=== PATIENT | male | born 1980 | race African-American/Black ===

== ENCOUNTER 2018-08-27 17:48 | Inpatient (IN) | payer SELFPAY ==
[2018-08-27 18:24] LABS: #Basophils 0.1 thou/uL (0.0-0.2); #Eosinphils 0.1 thou/uL (0.0-0.7); #Lymphocytes 1.4 thou/uL (1.20-3.40); #Monocytes 0.4 thou/uL (0.11-0.59); #Neutrophils 3.2 thou/uL (1.40-6.50); %Basophils 1.1 % (0.0-1.0); %Eosinophils 2.4 % (0.0-10.0); %Lymphocytes 26.9 % (21.0-51.0); %Neutrophils 62.5 % (42.0-75.0); Hemoglobin 12.4 g/dL (14.0-18.0); Mean Corpuscular HGB CONC 32.3 g/dL (32.0-36.0); Mean Corpuscular Hemoglobin 28.5 pg (27.0-31.0); Mean Corpuscular Volume 88.3 fL (78.0-98.0); Mean Platelet Volume 6.6 fL (7.4-10.4); Platelet Count 274 thou/uL (130-400); Red Blood Cell (RBC) Count 4.37 mill/uL (4.70-6.10); White Blood Cell (WBC) Count 5.1 thou/uL (4.8-10.8)
[2018-08-27 18:46] LABS: ALT (SGPT) 35 U/L (8-55); AST (SGOT) 53 U/L (5-34); Albumin 4.4 g/dL (3.5-5.0); Alkaline Phosphatase 59 U/L (40-150); Anion Gap 19 mmol/L (10-20); BUN (Urea Nitrogen) 20 mg/dL (8.9-20.6); Bilirubin, Total 0.9 mg/dL (0.2-1.2); Calc. Creatinine Clearance 0 mL/min (70-130); Carbon Dioxide 25 mmol/L (22-29); Chloride 102 mmol/L (98-107); Estimated GFR-MDRD 64; Globulin 3.5 g/dL (2.4-3.5); Glucose 81 mg/dL (70-105); Potassium 3.7 mmol/L (3.5-5.1); Protein, Total 7.9 g/dL (6.0-8.3); Sodium 142 mmol/L (136-145)
[2018-08-27 19:02] LABS: Calcium 5.6 mg/dL (7.8-10.44)
[2018-08-27] MEDS ORDERED: Calcium Gluc 4.6 MEQ/10 ML (100 MG/ML) ONE (20:37)
[2018-08-27] MEDS ORDERED: Ondansetron PF 4 MG/2 ML Vial IVP PRN (21:27)
[2018-08-27] MEDS ORDERED: Ondansetron ODT 4 MG TAB PO PRN (21:27)
[2018-08-27] MEDS ORDERED: Acetaminophen 325 MG TAB PO PRN (21:27)
[2018-08-27] MEDS ORDERED: Calcium Gluc 4.6 MEQ/10 ML (100 MG/ML) SLOW IVP SCH (21:34)
[2018-08-28 00:59] LABS: Anion Gap 20 mmol/L (10-20); BUN (Urea Nitrogen) 19 mg/dL (8.9-20.6); Calc. Creatinine Clearance 69 mL/min (70-130); Carbon Dioxide 22 mmol/L (22-29); Chloride 102 mmol/L (98-107); Estimated GFR-MDRD 72; Glucose 78 mg/dL (70-105); Potassium 3.5 mmol/L (3.5-5.1); Sodium 140 mmol/L (136-145)
[2018-08-28 01:02] LABS: Calcium 5.4 mg/dL (7.8-10.44)
[2018-08-28] MEDS ORDERED: Calcium Gluconate 4.6 MEQ in Sodium Chloride 0.9% 100 ML IVPB SCH (01:20)
[2018-08-28 01:52] LABS: Phosphorus 6.1 mg/dL (2.3-4.7)
--- NOTE | 2018-08-28 02:30 | HP ---
PRIMARY CARE PHYSICIAN: The patient has no PCP. CODE STATUS: Full code. TIME OF EVALUATION: 08:40 p.m. CHIEF COMPLAINT: Muscle spasm. HISTORY OF PRESENT ILLNESS: This is a 38-year-old male patient with past medical history of calcium problems, came to the hospital after having recurrent [id number]-ed-[id number] muscle spasm, triggered due to low calcium, no alleviating factors. The patient has Chvostek and Trousseau signs. The patient had received some calcium IV, however, the deficits persist likely due to chronic deficit and underlying disease. The patient does not recall what his diagnosis is. He is a poor historian. REVIEW OF SYSTEMS: CONSTITUTIONAL: No fever or chills. The patient has generalized weakness. RESPIRATORY: No cough, sputum production, or shortness of breath. CARDIOVASCULAR: No chest pain or palpitation. GASTROINTESTINAL: No nausea, no vomiting, diarrhea, or abdominal pain. CENTRAL NERVOUS SYSTEM: No dizziness, headache, or feeling lightheaded. GENITOURINARY: No burning on urination. MUSCULOSKELETAL: The patient has contractures of bilateral hands when the blood pressure cuff is applied to his arms. All other systems were reviewed and negative except for the findings mentioned above. PAST MEDICAL HISTORY: History of hypocalcemia. PAST SURGICAL HISTORY: No surgical history. PSYCH HISTORY: No previous psych history. FAMILY HISTORY: Reviewed and non contributory to current presentation. SOCIAL HISTORY: The patient drinks everyday less than 5 drinks per day. No drugs. The patient uses tobacco, smokes daily one pack per day. ALLERGIES: NO KNOWN DRUG ALLERGIES. REPORTED MEDICATIONS: None. PHYSICAL EXAMINATION: VITAL SIGNS: On presentation, blood pressure 161/89 with heart rate 73, respiratory rate was 20, temperature 99.3. Pain is 0/10. Oxygen saturation was 98% on room air. GENERAL APPEARANCE: The patient is alert, oriented, not in acute distress. The patient is a poor historian. HEENT: Eyes, normal conjunctivae. Moist oral mucosa. Anicteric. NECK: No JVD. RESPIRATORY: Bilateral air entry. No rales, no wheezing. Symmetric expansion. CARDIOVASCULAR: Normal rate, regular rhythm. No murmurs. No gallop. No edema. ABDOMEN: Soft. Normal bowel sounds. MUSCULOSKELETAL: The patient has a positive Trousseau on my examination. Generalized increased muscle tone. SKIN: Warm, intact. No pallor. No rash. No redness. Peripheral pulses are present. Capillary refill seems to be intact. NEUROLOGIC: No evidence of any new focal weakness. Baseline speech. Cranial nerves seems to be intact. PSYCHIATRIC: The patient is in good mood. No anxiety. Optimal judgment. EKG was reviewed. The patient has normal sinus rhythm with prolonged QT, ventricular rate 72, SC 132, QRS 78, and QT corrected 500. LABORATORY DATA: Reviewed. The patient has white count 5.1, hemoglobin 12.4, MCV 88.3, platelet count 274. Chemistry; sodium 142, potassium 3.7, chloride 102, carbon dioxide 25, anion gap 19, BUN 20, creatinine 1.51, unclear baseline kidney function for this patient. GFR 64, glucose 81, calcium 5.6 and second one was 5.4, total bilirubin 0.9. LFTs were negative. Serum total protein 7.9, albumin 4.4. ASSESSMENT AND PLAN: The patient will be placed in ICU for the following medical problems. Critical care time more than 35 minutes is spent in patient stabilization, bedside assessment, and counseling. 1. Severe hypocalcemia. The patient has been given 2 g of calcium IV and calcium remains very low. The patient is symptomatic with Trousseau symptoms and generalized spastic symptoms. We will place on a calcium drip in ICU, we will monitor for arrhythmias. We will order PTH, vitamin D, and phosphorous and magnesium. We will replace electrolytes as needed. 2. Uncontrolled hypertension. The patient presented with systolic blood pressure of 161. Seeing that the patient was not taking any medication at home, we might start some blood pressure medications if it has been getting to control. 3. Deep venous thrombosis prophylaxis. 4. Possible acute kidney injury. The patient has a creatinine of 1.5, the repeat one is 1.36. We will hydrate, we will monitor kidney function, might need Nephrology evaluation for assistance with patient. Job ID: [id number] [facility]
[2018-08-28 05:28] VITALS: BMI 23.6
[2018-08-28 05:43] LABS: #Basophils 0.1 thou/uL (0.0-0.2); #Eosinphils 0.3 thou/uL (0.0-0.7); #Lymphocytes 1.2 thou/uL (1.20-3.40); #Monocytes 0.5 thou/uL (0.11-0.59); %Basophils 1.1 % (0.0-1.0); %Lymphocytes 23.6 % (21.0-51.0); %Monocytes 10.3 % (0.0-10.0); Hemoglobin 11.9 g/dL (14.0-18.0); Mean Corpuscular HGB CONC 32.8 g/dL (32.0-36.0); Mean Corpuscular Hemoglobin 29.1 pg (27.0-31.0); Mean Corpuscular Volume 88.8 fL (78.0-98.0); Mean Platelet Volume 7.4 fL (7.4-10.4); Platelet Count 261 thou/uL (130-400); RBC Distribution Width 14.1 % (11.5-14.5); Red Blood Cell (RBC) Count 4.09 mill/uL (4.70-6.10)
[2018-08-28 05:59] LABS: Anion Gap 18 mmol/L (10-20); BUN (Urea Nitrogen) 18 mg/dL (8.9-20.6); Calc. Creatinine Clearance 70 mL/min (70-130); Carbon Dioxide 25 mmol/L (22-29); Chloride 99 mmol/L (98-107); Estimated GFR-MDRD 74; Glucose 71 mg/dL (70-105); Potassium 3.5 mmol/L (3.5-5.1); Sodium 138 mmol/L (136-145)
[2018-08-28 06:01] LABS: Calcium 5.9 mg/dL (7.8-10.44)
[2018-08-28] MEDS ORDERED: SODIUM CHLORIDE 0.9% IVPB SCH ×2 (06:30→06:45)
[2018-08-28] MEDS ORDERED: CALCIUM GLUCONATE IVPB SCH ×2 (06:30→06:45)
[2018-08-28] MEDS ORDERED: Calcium Carbonate 500 MG TAB PO SCH (08:00)
[2018-08-28] MEDS: Enoxaparin Sodium 40 MG/0.4 ML SYRINGE SC SCH (08:27)
[2018-08-28] MEDS: Magnesium Oxide 250 MG TAB PO SCH ×2 (09:38→20:41)
[2018-08-28] MEDS: Calcitriol 0.25 MCG CAP PO SCH (09:38)
--- NOTE | 2018-08-28 12:06 | CON ---
DATE OF CONSULTATION: REASON FOR CONSULTATION: Hypocalcemia. HISTORY OF PRESENT ILLNESS: This is a 38-year-old gentleman, who presented to the hospital with cramps and was noted to have a low-calcium. The patient has had chronic hypocalcemia for years. No diagnosis has been made. PAST MEDICAL HISTORY: Significant for CKD and hypertension. PAST SURGICAL HISTORY: None. SOCIAL HISTORY: No alcohol use. FAMILY HISTORY: Negative for ESRD. ALLERGIES: REVIEWED. HOME MEDICATIONS: List reviewed. REVIEW OF SYSTEMS: A 12-point review of systems was performed and was negative except for positives noted above. NECK: No swelling or lumps. NOSE: No epistaxis or discharge. EYES: No diplopia or pain. MUSCULOSKELETAL: No joint pain. NEUROPSYCHIATRIC SYSTEMS: No suicidal ideation. No ideation. SKIN: Denies any rash or ulcer. CONSTITUTIONAL: No fever or chills. PHYSICAL EXAMINATION: CONSTITUTIONAL: On examination, the patient is awake and alert. VITAL SIGNS: Afebrile. Pulse 75, breathing 16, and blood pressure 137/86. GENERAL APPEARANCE AND MENTAL STATUS: Fair. HEAD/NECK: Normocephalic. Atraumatic. EYES: EOMI. No deformity. EARS: Clear. No ulcers. NOSE: Intact. No lesions. MOUTH: Clear. No discharge. THROAT: Clear. No exudate. LUNGS: Clear. No crackles. CARDIAC: S1, S2. No rub. ABDOMEN: Benign. Bowel sounds positive. GENITALIA/RECTUM: Tavarez absent. BACK/EXTREMITIES: Edema 0+. NEUROLOGICAL: Alert and motor intact. LABORATORY DATA: Labs show creatinine 1.3. ASSESSMENT AND PLAN: 1. Hypocalcemia most likely because of hyperparathyroidism. 2. Chronic kidney disease, stage 3, stable. Acute kidney injury, stable. I would recommend starting the patient on calcitriol, on 2000 mg of elemental calcium 3 times a day. Job ID: [id number]
[2018-08-28] MEDS: Calcium Carbonate 500 MG TAB PO SCH ×2 (12:20→16:03)
--- NOTE | 2018-08-28 13:20 | CON ---
DATE OF CONSULTATION: 08/28/2018 REASON FOR CONSULT: ICU patient. HISTORY OF PRESENT ILLNESS: The patient is a 38-year-old male with past medical history significant for low calcium levels previously. He is on multiple medications in the outpatient setting in order to improve his calcium. Either way, he presented to the emergency department with horrendous cramping. He had positive Chvostek sign and Trousseau sign. As such, he was tucked in the ICU on a calcium drip. Overnight, all cramping has resolved. Essentially, he has returned to his usual state of health and has no specific complaints. He denies any spasm, fevers, chills, nausea, or vomiting. Otherwise, he is doing very well. PAST MEDICAL HISTORY: Hypocalcemia. PAST SURGICAL HISTORY: None. SOCIAL HISTORY: He drinks on a daily basis. Denies illicit drug use. He smokes a pack on a daily basis and has a 10-pack year history of smoking. He has no exposure to chemicals, dust, asbestos, or tuberculosis. FAMILY HISTORY: Noncontributory. ALLERGIES: NO KNOWN DRUG ALLERGIES. MEDICATIONS: List of his inpatient medications was reviewed. No specific updates were made at this time. REVIEW OF SYSTEMS: General, head, ears, eyes, nose, throat, cardiovascular, respiratory, GI, , musculoskeletal, neurologic, and skin are negative except as mentioned in the HPI. PHYSICAL EXAMINATION: VITAL SIGNS: Afebrile, pulse 100, blood pressure 137/86, respirations 21, and saturation 100% on room air. GENERAL: The patient is awake and alert, in no apparent distress. LUNGS: Excellent air entry with no prolonged expiratory phase or wheezing present. HEART: Normal rate and regular. ABDOMEN: Soft, nontender, and nondistended. Bowel sounds are positive. MUSCULOSKELETAL: No cyanosis or clubbing. No pitting in the bilateral lower extremities. NEUROLOGIC: Grossly nonfocal. LABORATORY DATA: WBC 5.0, hemoglobin 11.9, and platelets 261,000. Creatinine 1.33, and gently downtrending. Calcium 5.9, is moving in the right direction. Parathyroid hormone is less than 4. Vitamin D is 21.9. Phosphorus 6.1, magnesium 1.9. ASSESSMENT: 1. Hypocalcemia, symptomatic. 2. Hypoparathyroidism. 3. Hypertension. 4. Chronic kidney disease, suspected. DISCUSSION AND PLAN: The patient is doing fine from respiratory standpoint. At this point, he is stable for transition to the telemetry unit. We will need to continue to watch his electrical activity of the heart. Pulmonary Critical Care will continue to follow along for the time being. 70 minutes have been devoted to this patient in various activities. I personally reviewed all imaging studies and laboratory data noted within this document. For fifty percent of this time, I was interacting with the patient at the bedside or coordinating care with the care team. For the remainder of the time I was immediately available to the patient in the hospital unit. Job ID: [id number] [facility]
[2018-08-28 17:01] LABS: Anion Gap 13 mmol/L (10-20); BUN (Urea Nitrogen) 16 mg/dL (8.9-20.6); Calc. Creatinine Clearance 77 mL/min (70-130); Calcium 7.4 mg/dL (7.8-10.44); Carbon Dioxide 28 mmol/L (22-29); Chloride 99 mmol/L (98-107); Estimated GFR-MDRD 82; Glucose 96 mg/dL (70-105); Potassium 3.8 mmol/L (3.5-5.1); Sodium 136 mmol/L (136-145)
--- NOTE | 2018-08-28 22:22 | PDOC.PN ---
- Subjective Encounter Start Date: 08/28/18 Encounter Start Time: 15:00 Patient seen and examined for Hypocalcemia. Spasm improving. No CP. No new complaints. No overnight events - Objective Resuscitation Status - Order Detail: 08/27/18 21:27 Resuscitation Status Routine Resuscitation Status: FULL: Full Resuscitation MAR Reviewed: Yes Vital Signs & Weight: Vital Signs (12 hours) Temp Pulse Resp BP Pulse Ox 08/28/18 15:53 98.2 F 63 15 153/96 H 100 08/28/18 13:23 98.1 F 63 15 161/86 H 95 08/28/18 13:18 95 08/28/18 13:00 98.8 F Weight Weight 141 lb 15.643 oz Most Recent Monitor Data Heart Rate from ECG 78 NIBP 113/78 NIBP BP-Mean 89 Respiration from ECG 18 SpO2 100 I&O: 08/27/18 08/28/18 08/29/18 06:59 06:59 06:59 Intake Total 100 1367 Output Total 150 510 Balance -50 857 Result Diagrams: 08/28/18 04:31 08/28/18 16:34 EKG Reviewed by me: Yes (Tele SR) Phys Exam - Physical Examination Constitutional: NAD Respiratory: no wheezing, no rhonchi Cardiovascular: RRR, no rub Gastrointestinal: soft, non-tender, positive bowel sounds Musculoskeletal: no edema Dx/Plan - Plan DVT proph w/SCDs 1. Hypocalcemia 2. Muscle spasm due to #1 3. BRIDGETT on CKD 2 4. Vit D Def 5. h/o hypocalcemia 6. Chronic Anemia PLAN: Cont Calcium supp Cont Calcitrol AM labs Cont current meds as below Review of Systems - Review of Systems Respiratory: negative: Cough, Dry, Shortness of Breath, Hemoptysis, SOB with Excertion, Pleuritic Pain, Sputum, Wheezing Cardiovascular: negative: chest pain, palpitations, orthopnea, paroxysmal nocturnal dyspnea, edema, light headedness, other - Medications/Allergies Allergies/Adverse Reactions: Allergies Allergy/AdvReac Type Severity Reaction Status Date / Time No Known Drug Allergies Allergy Verified 08/27/18 22:08 Medications: Current Medications Acetaminophen (Tylenol) 650 mg PO Q4H PRN PRN Reason: Headache/Fever/Mild Pain (1-3) Last Admin: 08/28/18 08:31 Dose: 650 mg Calcitriol (Rocaltrol) 2 mcg PO DAILY [facility] Last Admin: 08/28/18 09:38 Dose: 2 mcg Calcium Carbonate (Oscal-500) 2,000 mg PO TID-WM [facility] Last Admin: 08/28/18 16:03 Dose: 2,000 mg Enoxaparin Sodium (Lovenox) 40 mg SC 0900 [facility] Last Admin: 08/28/18 08:27 Dose: 40 mg Magnesium Oxide (Magnesium Oxide) 500 mg PO BID [facility] Last Admin: 08/28/18 20:41 Dose: 500 mg Ondansetron HCl (Zofran Odt) 4 mg PO Q6H PRN PRN Reason: Nausea/Vomiting Ondansetron HCl (Zofran) 4 mg IVP Q6H PRN PRN Reason: Nausea/Vomiting
[2018-08-29 05:38] LABS: Anion Gap 16 mmol/L (10-20); BUN (Urea Nitrogen) 13 mg/dL (8.9-20.6); Calc. Creatinine Clearance 74 mL/min (70-130); Calcium 8.2 mg/dL (7.8-10.44); Carbon Dioxide 26 mmol/L (22-29); Chloride 103 mmol/L (98-107); Estimated GFR-MDRD 80; Glucose 97 mg/dL (70-105); Potassium 3.8 mmol/L (3.5-5.1); Sodium 141 mmol/L (136-145)
[2018-08-29 05:39] LABS: Phosphorus 6.1 mg/dL (2.3-4.7)
[2018-08-29] MEDS: Calcitriol 0.25 MCG CAP PO SCH (08:40)
[2018-08-29] MEDS: Magnesium Oxide 250 MG TAB PO SCH ×2 (08:41→19:37)
[2018-08-29] MEDS: Calcium Carbonate 500 MG TAB PO SCH ×3 (08:41→16:02)
[2018-08-29] MEDS: Enoxaparin Sodium 40 MG/0.4 ML SYRINGE SC SCH (08:41)
--- NOTE | 2018-08-29 10:34 | PRG ---
DATE OF SERVICE: 08/29/2018 SUBJECTIVE: The patient is seen and examined at bedside. He is feeling significantly better. He does not have much complaints to offer. OBJECTIVE: VITAL SIGNS: Blood pressure is 130/88, pulse is 66, temperature is 97.9, respirations 16, O2 saturation is 98% on room air. HEENT: His head is atraumatic and normocephalic. Eyes are PERRLA. Sclerae are nonicteric. Oral mucosa is moist. NECK: Supple. LUNGS: Clear. HEART: S1, S2 normal. No S3. No S4. No murmur. ABDOMEN: Soft, nontender. EXTREMITIES: No clubbing, cyanosis, or edema. NEUROLOGIC: He follows my commands. He moves his all four extremities. LABORATORY DATA: Labs showed normal chemistry, phosphorus 6.1, calcium 8.2. Yesterday, calcium went up from 5.4 to 7.4. TSH third generation 2.07. PTH intact, less than 4. Vitamin D level 21.9. IMPRESSION: 1. Severe hypocalcemia. 2. Acute kidney injury, improved. 3. Vitamin D deficiency. 4. History of hypocalcemia. 5. Chronic anemia. PLAN: We will check his vitamin D level. We will continue his calcium supplementation. We will look into malabsorption possibility as explanation of his vitamin D deficiency. Job ID: [id number]
--- NOTE | 2018-08-29 11:01 | PRG ---
DATE OF SERVICE: 08/29/2018 SUBJECTIVE: A 38-year-old gentleman being seen for hypocalcemia. The patient denies any nausea, vomiting, or chest pain. OBJECTIVE: CONSTITUTIONAL: The patient is awake, alert, in no acute distress. VITAL SIGNS: Afebrile, pulse 66, breathing 16, blood pressure 130/88. GENERAL APPEARANCE AND MENTAL STATUS: Fair. HEAD/NECK: Normocephalic. Atraumatic. EYES: EOMI. No deformity. EARS: Clear. No ulcers. NOSE: Intact. No lesions. MOUTH: Clear. No discharge. THROAT: Clear. No exudate. LUNGS: Clear. No crackles. CARDIAC: S1, S2. No rub. ABDOMEN: Benign. Bowel sounds positive. GENITALIA/RECTUM: Tavarez absent. BACK/EXTREMITIES: Edema 0+. NEUROLOGICAL: Alert and motor intact. SKIN: LYMPHATICS: LABORATORY DATA: Labs show calcium 8.2. ASSESSMENT AND PLAN: 1. Chronic kidney disease stage 3, stable. 2. Hypertension, stable. 3. Hypocalcemia, recommend 2000 units of calcium 3 times a day. Recheck labs in 2 days. I will sign off on this patient. 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 Please reconsult as needed and schedule follow up to see me in 1 month. Job ID: [id number]
--- NOTE | 2018-08-29 15:20 | PRG ---
DATE OF SERVICE: 08/29/2018 SERVICE: Pulmonary Medicine. INTERVAL HISTORY: The patient is doing really well from respiratory standpoint. No more cramping. No more neurologic symptoms. Otherwise, he is returning to his usual state of health and has no specific complaints. PHYSICAL EXAMINATION: VITAL SIGNS: Afebrile, pulse 66, blood pressure 136/87, respirations 15, and saturation 100% on room air. GENERAL: The patient is awake and alert, in no apparent distress. LUNGS: Excellent air entry without any prolonged expiratory phase or wheezing. HEART: Normal rate and regular. ABDOMEN: Soft, nontender, and nondistended. Bowel sounds are positive. MUSCULOSKELETAL: No cyanosis or clubbing. No pitting in the bilateral lower extremities. NEUROLOGIC: Grossly nonfocal. LABORATORY DATA: Creatinine 1.24. Basic metabolic profile is otherwise unremarkable. Calcium is returned to the normal limits. Phosphorus 6.1 and TSH 2.07. ASSESSMENT: 1. Hypocalcemia, symptomatic. 2. Hypoparathyroidism. 3. Hypertension. 4. Chronic kidney disease, stage 2. DISCUSSION AND PLAN: The patient is doing absolutely wonderful from respiratory standpoint. His calcium is back in the normal range, and he is completely asymptomatic. At this point, he has no further requirements for inpatient Pulmonary or Critical Care opinion, and I will sign off. Please call with additional questions or concerns through time. Job ID: [id number]
[2018-08-30 05:45] LABS: Phosphorus 6.3 mg/dL (2.3-4.7)
[2018-08-30 06:05] LABS: Anion Gap 17 mmol/L (10-20); BUN (Urea Nitrogen) 15 mg/dL (8.9-20.6); Calc. Creatinine Clearance 61 mL/min (70-130); Calcium 9.2 mg/dL (7.8-10.44); Carbon Dioxide 24 mmol/L (22-29); Chloride 106 mmol/L (98-107); Estimated GFR-MDRD 65; Glucose 104 mg/dL (70-105); Potassium 4.5 mmol/L (3.5-5.1); Sodium 142 mmol/L (136-145)
[2018-08-30] MEDS: Enoxaparin Sodium 40 MG/0.4 ML SYRINGE SC SCH (08:45)
[2018-08-30] MEDS: Calcium Carbonate 500 MG TAB PO SCH ×2 (08:46→11:52)
[2018-08-30] MEDS: Calcitriol 0.25 MCG CAP PO SCH (08:46)
[2018-08-30] MEDS: Magnesium Oxide 250 MG TAB PO SCH (08:46)
--- NOTE | 2018-08-30 10:35 | DIS ---
DATE OF ADMISSION: 08/27/2018 DATE OF DISCHARGE: 08/30/2018 CONSULTANTS: 1. Efe Gunter MD, Nephrology Service. 2. Kieran Victor MD, Pulmonary/Critical Care Service. FINAL DIAGNOSES: 1. Severe hypocalcemia. 2. Acute kidney injury, improved. 3. Vitamin D deficiency. 4. Hypomagnesemia. 5. Chronic anemia. 6. History of hypocalcemia. 7. Hypoparathyroidism. HOSPITAL COURSE: The patient is a 38-year-old male, who was admitted to the hospital because of muscle spasms. Apparently, he was not taking his home medications he was supposed to take and started having some problems. He has a long history of calcium problems. During the emergency room evaluation, he had Chvostek and Trousseau signs positive. He received IV calcium and got admitted to the hospital. At the time of admission, his white count was 5.1, hemoglobin 12.4, MCV was 88.3, platelet count 274. Electrolytes were within normal limits. Creatinine 1.51, BUN 20, calcium was 5.6, the second calcium level was 5.4, total bilirubin 0.9. LFTs were not negative. Serum protein was 7.9 and albumin 4.4. The patient was placed in intensive care unit. He was given 2 g of calcium IV and calcium level remained very low, so he was started on calcium drip. He was started on IV fluids since his creatinine was elevated at 1.5 and repeated one was 1.36. The patient was seen by Dr. Victor for critical care/pulmonary evaluation. He recommended close observation of the patient's electrical activity and agree with the regimen. The patient was given his home medications which is vitamin D, calcitriol 2 mcg daily. He was started on high dose of calcium carbonate orally 2000 mg 3 times a day. He was given 500 mg of oral magnesium oxide twice a day and gradually his calcium improved. His calcium drip was stopped and he was moved out from intensive care unit. Today, his calcium is up to 9.2. His creatinine is 1.49. PHYSICAL EXAMINATION: MATT SIGNS: Blood pressure is 117/83, pulse 83, respiratory rate 16, O2 saturation is 99% on room air, temperature is 98.3. He was seen and examined before his discharge. LUNGS: Clear. HEART: S1 and S2 normal. No S3. No S4. No any murmur. ABDOMEN: Soft, nontender. EXTREMITIES: No clubbing, cyanosis, or edema. NEUROLOGICAL: Within normal limits. DISCHARGE INSTRUCTIONS: He is discharged home with recommendation to stay on his home medications and never run out of those home medications. He understands the importance of taking his home medications at this point. MEDICATIONS AT THE TIME OF DISCHARGE: 1. Calcitriol 2 mcg daily. 2. Calcium carbonate 1000 mg twice a day. 3. Magnesium oxide 500 mg twice a day. DIET: He is going to stay on heart healthy diet. ACTIVITIES: As tolerated. FOLLOWUP: He will do follow up with his primary care physician in 1 week. At this time, he will have BMP and vitamin D levels checked. Job ID: [id number]
[2018-08-30 11:58] VITALS: BP 121/90; TEMP 97.9
== END 2018-08-30 13:06 | disposition home or self-care (01) | DRG 641 ==
LOC: ERS 17:48 → T4-B 20:22 → CCU 08-28 02:14 → 2NO 08-28 14:02
PROVIDERS: ADMIT Hospitalist; ATTEND Hospitalist
DX: E83.51 Hypocalcemia (principal); N17.9 Acute kidney failure, unspecified; N18.2 Chronic kidney disease, stage 2 (mild); I12.9 Hypertensive chronic kidney disease with stage 1 through stage 4 chronic kidney disease, or unspecified chronic kidney disease; E55.9 Vitamin D deficiency, unspecified; D64.9 Anemia, unspecified; E83.42 Hypomagnesemia; F17.210 Nicotine dependence, cigarettes, uncomplicated; Z91.14 Patient's other noncompliance with medication regimen
CPT/HCPCS: 36415; 80048; 82040; 82306; 83735; 83970; 84100; 84443; 85025; 93005; 96365; 96367; J1650; J3475; J7050